=== PATIENT | female | born 1955 | race Caucasian/White ===

== ENCOUNTER 2016-04-19 16:49 | Outpatient (CLI) | payer MEDICAID | END 2016-04-19 16:50 | disposition home or self-care (01) | DX: R93.8 Abnormal findings on diagnostic imaging of other specified body structures (principal) ==

== ENCOUNTER 2016-05-29 15:01 | Outpatient (CLI) | payer MEDICAID | END 2016-05-29 15:02 | disposition home or self-care (01) | DX: Z01.812 Encounter for preprocedural laboratory examination (principal); N95.0 Postmenopausal bleeding ==

== ENCOUNTER 2016-05-31 08:04 | Day surgery (SDC) | payer MEDICAID ==
[~2016-05-31 08:04] MED LIST: ceFAZolin 2 GM/50 ML 50 ML IV ONE
[2016-05-31] MEDS ORDERED: LACTATED RINGERS 1,000 ML IV ONE (08:16)
[2016-05-31] MEDS ORDERED: BUPIVACAINE 0.25%-EPI 1:200000 PF 30 ML VIAL SUBQ ONE ×2 (09:49)
[2016-05-31] MEDS ORDERED: MIDAZOLAM 2 MG/2 ML VIAL IVP ONE (10:00)
[2016-05-31] MEDS ORDERED: LIDOCAINE 1% 50 ML MDV SUBQ ONE (10:00)
[2016-05-31] MEDS ORDERED: GLYCOPYRROLATE 1 MG/5 ML VIAL IVP ONE (10:00)
[2016-05-31] MEDS ORDERED: fentaNYL 100 MCG/2 ML VIAL IVP ONE (10:00)
[2016-05-31] MEDS ORDERED: DEXAMETHASONE 4 MG/ML VIAL IVP ONE (10:00)
[2016-05-31] MEDS ORDERED: ONDANSETRON 4 MG/2 ML VIAL IVP ONE (10:00)
[2016-05-31] MEDS ORDERED: PROPOFOL 200 MG/20 ML VIAL IVP ONE (10:00)
== END 2016-05-31 08:05 | disposition home or self-care (01) ==
PROC: 0UDB8ZZ Extraction of Endometrium, Via Natural or Artificial Opening Endoscopic (ICD-10-PCS; principal; 2016-05-31 09:00)
DX: N95.0 Postmenopausal bleeding (principal); F32.9 Major depressive disorder, single episode, unspecified
CPT/HCPCS: 58558; 93005; J0690; J7120

== ENCOUNTER 2017-08-29 08:00 | Outpatient (CLI) | payer MEDICAID | END 2017-08-29 08:01 | disposition home or self-care (01) | LOC: LAB.R 08:00 | PROVIDERS: ATTEND Physician Assistant Medical | DX: F90.0 Attention-deficit hyperactivity disorder, predominantly inattentive type (principal) | CPT/HCPCS: 81599 ==

== ENCOUNTER 2017-08-29 08:00 | Outpatient (CLI) | payer MEDICAID ==
[2017-08-30 10:46] LABS: ALBUMIN 3.9 g/dL (3.2-5.5); ALBUMIN/GLOBULIN RATIO 1.5 (1.0-2.2); BILIRUBIN,TOTAL 0.7 mg/dL (0.2-1.0); CALCIUM 9.2 mg/dL (8.5-10.3); CREATININE 0.6 mg/dL (0.4-1.0); TOTAL PROTEIN 6.5 g/dL (6.7-8.2)
[2017-08-30 10:48] LABS: BASOPHILS % (AUTO) 0.6 %; EOSINOPHILS # (AUTO) 0.1 10^3/uL (0.0-0.7); EOSINOPHILS % (AUTO) 1.8 %; HGB - HEMOGLOBIN 13.1 g/dL (12.0-16.0); LYMPHOCYTES # (AUTO) 1.6 10^3/uL (1.5-3.5); LYMPHOCYTES % (AUTO) 36.2 %; MEAN CORPUSCULAR HEMOGLOBIN 32.9 pg (27.0-31.0); MEAN CORPUSCULAR HGB CONC 34.1 g/dL (32.0-36.0); MEAN CORPUSCULAR VOLUME 96.5 fL (81.0-99.0); MEAN PLATELET VOLUME 8.7 fL (7.9-10.8); MONOCYTES # (AUTO) 0.3 10^3/uL (0.0-1.0); NEUTROPHILS # (AUTO) 2.5 10^3/uL (1.5-6.6); NEUTROPHILS % (AUTO) 55.4 %; PLT - PLATELET COUNT 216 10^3/uL (130-450); RED BLOOD COUNT 3.99 10^6/uL (4.20-5.40); RED CELL DISTRIBUTION WIDTH 13.6 % (12.0-15.0); WHITE BLOOD COUNT 4.5 x10^3/uL (4.8-10.8)
== END 2017-08-29 08:01 | disposition home or self-care (01) ==
LOC: LAB.F 08:00
PROVIDERS: ATTEND Physician Assistant Medical
DX: Z51.81 Encounter for therapeutic drug level monitoring (principal); Z79.899 Other long term (current) drug therapy
CPT/HCPCS: 36415; 80053; 80360; 81599; 85025

== ENCOUNTER 2018-03-26 08:12 | Outpatient (CLI) | payer MEDICAID ==
--- NOTE | 2018-04-02 16:12 | DEXA Report ---
Reason: POSTEMNOPAUSAL STATUS Procedure Date: 03/26/2018 Accession Number: [id number] / [id number] Procedure: DEX - Dexa Spine and/or Hip CPT Code: FULL RESULT: EXAM: Dexa Spine and/or Hip DATE: 03/26/2018 9:03 AM CLINICAL HISTORY: POST-MENOPAUSAL STATUS TECHNIQUE: Dual energy x-ray absorptiometry (DXA) was performed on a Jammcard System. Regions measured are the AP Spine, femoral neck, and if needed forearm. COMPARISON: 01/24/2016 In accordance with the International Society for Clinical Densitometry (ISCD) guidelines, data from previous exams may be reanalyzed using current recommendations and techniques. This is done to allow a more accurate basis for comparison with the current study. FINDINGS: The data for the lumbar spine is as follows: BMD (g/cm/cm) T-SCORE Z-SCORE REGION L1 0.851 -2.3 -0.5 L2 0.897 -2.5 -0.7 L3 0.926 -2.3 -0.5 L4 0.848 -2.9 -1.1 TOTAL 0.880 -2.5 -0.7 NOTE: All evaluable vertebrae are used for classification The data for the hip is as follows: BMD (g/cm/cm) T-SCORE Z-SCORE REGION Neck 0.666 -2.7 -1.1 TOTAL 0.652 -2.8 -1.5 NOTE: The femoral neck or total proximal femur, whichever is lowest, is used for classification.. DXA RESULTS SUMMARY: Spine SCAN DATE AGE BMD CHANGE VS CHANGE VS PREVIOUS PREVIOUS % [birth year]26[birth year]2018 [age] 0.880 -0.075* -7.9* 01/24/2016 62.7 0.955 * Denotes significant change at the 95% confidence level. Denotes dissimilar scan types or analysis methods. DXA RESULTS SUMMARY: Hip SCAN DATE AGE BMD CHANGE VS CHANGE VS PREVIOUS PREVIOUS % [birth year]26/2018 64.9 0.652 -0.022 -3.3 01/24/2016 62.7 0.674 * Denotes significant change at the 95% confidence level. Denotes dissimilar scan types or analysis methods. IMPRESSION: THE WHO CLASSIFICATION BASED ON THE INTERNATIONAL REFERENCE STANDARD IS OSTEOPOROSIS. THE FRACTURE RISK IS HIGH. RECOMMENDATION: Patients with diagnosis of osteoporosis or osteopenia should have regular bone mineral density assessment. For those eligible for Medicare, routine testing is allowed once every 2 years. Testing frequency can be increased for patients who have rapidly progressing disease or for those who are receiving medical therapy to restore bone mass. COMMENT: World Health Organization (WHO) definitions for osteoporosis and osteopenia: NORMAL BMD: T-score at -1.0 or higher, fracture risk is low OSTEOPENIA BMD: T-score between -1.0 and -2.5, fracture risk is increased. OSTEOPOROSIS BMD: T-score at -2.5 or lower, fracture risk is high. National Osteoporosis Foundation recommends: 1. Obtain adequate dietary calcium (at least 1200 mg per day) and vitamin D (400-800 international units per day). 2. Participate, as appropriate, in regular weightbearing and muscle-strengthening exercise. 3. Avoid tobacco use and reduce alcohol and caffeine intake. 4. For more detailed information see the website at www.NOF.org.
== END 2018-03-26 08:13 | disposition home or self-care (01) ==
LOC: DI 08:12
PROVIDERS: ATTEND Physician Assistant Medical
DX: M81.0 Age-related osteoporosis without current pathological fracture (principal)
CPT/HCPCS: 77080

== ENCOUNTER 2018-05-09 09:30 | Outpatient (CLI) | payer MEDICAID, MEDICARE ==
--- NOTE | 2018-05-10 09:21 | Mammography Report ---
Reason: SCREENING MAMMO Procedure Date: 05/09/2018 Accession Number: [id number] / [id number] Procedure: [facility]CO[facility] - Screening Mammo w/Paolo CPT Code: FULL RESULT: EXAM: Screening Mammo w/Paolo DATE: 05/09/2018 10:03 AM CLINICAL HISTORY: Screening encounter. History of late childbearing. TECHNIQUE: Bilateral CC and MLO views were obtained. COMPARISON: 01/24/2016 through 10/03/2013. FINDINGS: The breasts demonstrate heterogeneously dense fibroglandular parenchyma bilaterally. No suspicious masses, clustered microcalcifications, or regions of architectural distortion are identified. IMPRESSION: Negative examination RECOMMENDATION: Routine annual screening unless otherwise clinically indicated. BIRADS CATEGORY 1: Negative STANDARD QUALIFYING STATEMENTS: 1. This examination was not reviewed with the aid of Computer-Aided Detection (CAD). 2. A negative or benign imaging report should not preclude biopsy if clinically suspicious findings are present. 3. Dense breasts may obscure an underlying neoplasm. 4. This examination was reviewed with the aid of 3D breast imaging (tomosynthesis).
== END 2018-05-09 09:31 | disposition home or self-care (01) ==
LOC: DI 09:30
DX: Z12.31 Encounter for screening mammogram for malignant neoplasm of breast (principal)
CPT/HCPCS: 77063; 77067

== ENCOUNTER 2018-07-18 09:19 | Day surgery (SDC) | payer MEDICARE ==
[2018-07-18] MEDS ORDERED: LACTATED RINGERS 1,000 ML IV ONE (09:54)
[2018-07-18] MEDS ORDERED: fentaNYL 250 MCG/5 ML VIAL IVP ONE (11:29)
[2018-07-18] MEDS ORDERED: MIDAZOLAM 2 MG/2 ML VIAL IVP ONE (11:29)
[2018-07-18 11:57] VITALS: BP 102/75
== END 2018-07-18 09:20 | disposition home or self-care (01) ==
LOC: SDS 09:19
PROVIDERS: ATTEND Internal Medicine Gastroenterology
PROC: 0DBF8ZZ Excision of Right Large Intestine, Via Natural or Artificial Opening Endoscopic (ICD-10-PCS; principal; 2018-07-18 10:45)
DX: Z12.11 Encounter for screening for malignant neoplasm of colon (principal); D12.1 Benign neoplasm of appendix; Z87.891 Personal history of nicotine dependence
CPT/HCPCS: 45380; J3010; J7120

== ENCOUNTER 2019-02-14 09:06 | Outpatient (CLI) | payer MEDICARE ==
[2019-02-14 18:56] LABS: BASOPHILS % (AUTO) 0.5 %; EOSINOPHILS # (AUTO) 0.1 10^3/uL (0.0-0.7); HGB - HEMOGLOBIN 13.3 g/dL (12.0-16.0); LYMPHOCYTES # (AUTO) 1.5 10^3/uL (1.5-3.5); LYMPHOCYTES % (AUTO) 24.7 %; MEAN CORPUSCULAR HEMOGLOBIN 32.6 pg (27.0-31.0); MEAN CORPUSCULAR HGB CONC 32.4 g/dL (32.0-36.0); MEAN CORPUSCULAR VOLUME 100.7 fL (81.0-99.0); MONOCYTES # (AUTO) 0.4 10^3/uL (0.0-1.0); MONOCYTES % (AUTO) 6.3 %; NEUTROPHILS # (AUTO) 3.9 10^3/uL (1.5-6.6); NEUTROPHILS % (AUTO) 66.2 %; PLT - PLATELET COUNT 308 10^3/uL (130-450); RED BLOOD COUNT 4.08 10^6/uL (4.20-5.40); RED CELL DISTRIBUTION WIDTH 12.7 % (12.0-15.0); WHITE BLOOD COUNT 5.9 x10^3/uL (4.8-10.8)
[2019-02-14 19:38] LABS: ALBUMIN 3.9 g/dL (3.2-5.5); ALBUMIN/GLOBULIN RATIO 1.3 (1.0-2.2); BILIRUBIN,TOTAL 0.6 mg/dL (0.2-1.0); CALCIUM 8.8 mg/dL (8.5-10.3); CREATININE 0.7 mg/dL (0.4-1.0); TOTAL PROTEIN 6.8 g/dL (6.7-8.2)
== END 2019-02-14 09:07 | disposition home or self-care (01) ==
LOC: LAB.S 09:06
PROVIDERS: ATTEND Physician Assistant Medical
DX: Z51.81 Encounter for therapeutic drug level monitoring (principal); Z79.899 Other long term (current) drug therapy; E55.9 Vitamin D deficiency, unspecified; M81.0 Age-related osteoporosis without current pathological fracture
CPT/HCPCS: 36415; 80053; 82306; 85025

== ENCOUNTER 2019-05-15 15:04 | Outpatient (CLI) | payer MEDICARE ==
[2019-05-15 15:38] LABS: MEAN CORPUSCULAR HGB CONC 32.5 g/dL (32.0-36.0); MEAN CORPUSCULAR VOLUME 98.4 fL (81.0-99.0); MEAN PLATELET VOLUME 10.1 fL (7.9-10.8); RED BLOOD COUNT 3.75 10^6/uL (4.20-5.40); RED CELL DISTRIBUTION WIDTH 12.9 % (12.0-15.0); WHITE BLOOD COUNT 7.7 x10^3/uL (4.8-10.8)
[2019-05-15 15:52] LABS: ALBUMIN 3.5 g/dL (3.2-5.5); ALBUMIN/GLOBULIN RATIO 1.1 (1.0-2.2); BILIRUBIN,TOTAL 0.4 mg/dL (0.2-1.0); CALCIUM 8.8 mg/dL (8.5-10.3); CREATININE 0.6 mg/dL (0.4-1.0); TOTAL PROTEIN 6.6 g/dL (6.7-8.2)
== END 2019-05-15 15:05 | disposition home or self-care (01) ==
LOC: LAB 15:04
PROVIDERS: ATTEND Obstetrics & Gynecology
DX: R09.89 Other specified symptoms and signs involving the circulatory and respiratory systems (principal); M54.6 Pain in thoracic spine; R19.00 Intra-abdominal and pelvic swelling, mass and lump, unspecified site
CPT/HCPCS: 36415; 80053; 81599; 85027; 86304

== ENCOUNTER 2019-05-15 16:26 | Outpatient (CLI) | payer MEDICARE ==
[2019-05-15] MEDS ORDERED: IOVERSOL 320 100 ML VIAL IVP ONE ×2 (16:37→16:57)
--- NOTE | 2019-05-15 17:46 | CT Report ---
Reason: Abdominal Bruit, Distention, Pelvic Mass Procedure Date: 05/15/2019 Accession Number: [id number] / [id number] Procedure: CT - ANGIO ABDOMEN/PELVIS W CPT Code: Addended Final Report FULL RESULT: EXAM: CT ANGIOGRAM ABDOMEN AND PELVIS WITH CONTRAST EXAM DATE: 05/15/2019 04:55 PM. CLINICAL HISTORY: Abdominal Bruit, Distention, Pelvic Mass. COMPARISONS: None. TECHNIQUE: Routine helical CT angiogram imaging was performed through the abdomen and pelvis in the arterial phase. IV contrast: OPTI 320 100ML. Enteric contrast: No. Reconstructions: Coronal, sagittal, and 3D MIP reconstructions. In accordance with CT protocol optimization, one or more of the following dose reduction techniques were utilized for this exam: automated exposure control, adjustment of mA and/or KV based on patient size, or use of iterative reconstructive technique. FINDINGS: Vasculature: The abdominal aorta and iliac arteries are normal in caliber. Negligible calcified plaque. The renal arteries and mesenteric arteries are patent without evidence of significant stenosis or mural thrombus. Lung Bases: Normal. Abdominal Solid Organs: Assessment of solid organs limited by early arterial phase technique. No hypervascular early enhancing solid organ lesion. No focal mass or organomegaly. Peritoneal Cavity: There is a moderate volume of intraperitoneal free fluid within all 4 quadrants of the abdomen. There is nodularity of omentum in the left upper quadrant of the abdomen with peritoneal thickening. There is an omental nodule in the left upper quadrant located between the posterior spleen and left kidney measuring 12 mm on series 2 image 53. There are other ill-defined nodules in the left upper quadrant anterior and inferior to the spleen which appears separate from bowel. Concerning for omental carcinomatosis. No free air. Pelvic Organs: Normal ovaries are not visualized, although evaluation is limited by early arterial phase technique. There are bilateral adnexal masses which demonstrate a heterogeneous arterial enhancement. There is a right adnexal mass measuring 75 x 67 x 75 mm. There is a left adnexal mass measuring 100 x 70 85 mm. Uterus appears anteverted. Bones: No significant abnormality. Other: None. IMPRESSION: 1. Normal appearance of aorta, iliac arteries and mesenteric arteries. 2. Moderate volume of free fluid in all 4 quadrants of abdomen. Multiple omental nodules in the left upper quadrant suspicious for peritoneal carcinomatosis. 3. Bilateral large adnexal masses. No normal ovaries visualized. Possible large omental implants versus bilateral or unilateral ovarian neoplasm. Characterization limited by technique. RADIA The call report notification system was initiated by Dr. Topher Harris at 05:46 PM on 05/15/2019. ADDENDUM: 05/15/19 18:36 The above call report findings were discussed with Jorge L by Dr. Young at 06:36 PM on 05/15/2019.
--- NOTE | 2019-05-15 18:35 | CT Report ---
Reason: Chest Pain, Back Pain Procedure Date: 05/15/2019 Accession Number: [id number] / [id number] Procedure: CT - ANGIO CHEST W/WO CPT Code: Final Report FULL RESULT: EXAM: CT ANGIOGRAM CHEST EXAM DATE: 05/15/2019 04:55 PM. CLINICAL HISTORY: Chest Pain, Back Pain. COMPARISON: None TECHNIQUE: Routine helical imaging was performed through the chest in the pulmonary arterial phase. IV Contrast: OPTI 320 100ML. Reconstructions: Coronal 3-D MIP reconstructions. Sagittal and coronal. In accordance with CT protocol optimization, one or more of the following dose reduction techniques were utilized for this exam: automated exposure control, adjustment of mA and/or KV based on patient size, or use of iterative reconstructive technique. FINDINGS: Vascular: Thoracic aorta is normal caliber. No intramural hematoma, dissection, or high grade stenosis. Visualized portions of the major arch branches are patent without high grade stenosis. Acute segmental and subsegmental small amount of nonocclusive pulmonary emboli in the right upper lobe, right lower lobe, and left lower lobe. No imaging evidence for right heart strain. Lungs/Pleura: A couple of 4 mm nodules in the posterior left upper lobe () are noted. No pleural effusions. Mediastinum: No mediastinal or hilar lymphadenopathy. Heart size is within normal limits. No pericardial effusion. Visualized thyroid is unremarkable. Moderate sliding hiatal hernia. Increased numbers of subcentimeter axillary lymph nodes measuring up to 8 mm on the right, with a fatty hilum. Bones: No suspicious osseous lesions. IMPRESSION: Small amount of acute pulmonary borderline in the right upper lobe, right lower lobe, and left lower lobe. No imaging evidence for right heart strain. RADIA The critical result notification system was initiated by Dr. Faisal Young at 05:43 PM on 05/15/2019. The above critical result findings were discussed with Cristal Coats by Dr. Faisal Young at 06:35 PM on 05/15/2019.
== END 2019-05-15 16:27 | disposition home or self-care (01) ==
LOC: DI 16:26
PROVIDERS: ATTEND Obstetrics & Gynecology
DX: I26.99 Other pulmonary embolism without acute cor pulmonale (principal); R19.02 Left upper quadrant abdominal swelling, mass and lump; N94.9 Unspecified condition associated with female genital organs and menstrual cycle
CPT/HCPCS: 71275; 74174

== ENCOUNTER 2020-01-02 12:14 | Emergency (ER) | payer MEDICARE ==
--- NOTE | 2020-01-02 13:22 | ED Physician Documentation ---
History of Present Illness - Stated complaint Stated Complaint: LEG PAIN, PURPLE LEFT LEG - Chief complaint Chief Complaint: General - History obtained from History obtained from: Patient - History of Present Illness Timing: How many days ago (3) Pain level max: 0 Pain level now: 0 - Additonal information Additional information: 64-year-old female with a history of stage IV ovarian cancer and pulmonary embolism, presents the emergency department with red dots and bruising to both of her legs for the last 3 days. She is currently on Eliquis and recently started Zejula. Does have intermittent epistaxis for several months, none currently. She denies bleeding when brushing her teeth. No rectal or vaginal bleeding. No trauma. No headache. Review of Systems Constitutional: denies: Fever, Chills Nose: reports: Epistaxis (intermittent for months, none now). 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: Other : Other HEENT: None Psych: Depression, Anxiety, ADD/ADHD Musculoskeletal: Osteoporosis Derm: None - Past Surgical History Past Surgical History: Yes General: Colonoscopy /AUTOMOTIVE PARTS COUNTERPERSON: section, Dilation and currettage HEENT: Cataracts, Tonsil/Adenoidectomy - Present Medications Home Medications: Ambulatory Orders Medication Instructions Recorded Confirmed Citalopram Hydrobromide 20 mg PO DAILY 05/16/19 12/15/19 [Citalopram HBr] Methylphenidate HCl 20 mg PO BID 05/16/19 12/15/19 [Methylphenidate ER] Cyclosporine [Restasis] 1 drops EACHEYE DAILY PRN 06/23/19 12/15/19 LORazepam [Ativan] 0.5 mg PO Q6H PRN 06/24/19 12/15/19 Lidocaine/Prilocain 2.5% Cream 30 gm TOP DAILY 06/24/19 12/15/19 [Emla 2.5% Cream] Oxycodone HCl/Acetaminophen 1 each PO Q12H PRN 06/24/19 12/15/19 [Percocet 10-325 mg Tablet] Prochlorperazine Maleate 10 mg PO DAILY PRN 06/24/19 12/15/19 [Compazine] Rivaroxaban [Xarelto] 20 mg PO DAILY 06/24/19 12/15/19 Niraparib Tosylate [Zejula] 300 mg PO DAILY 11/17/19 12/15/19 - Allergies Allergies/Adverse Reactions: Allergies Allergy/AdvReac Type Severity Reaction Status Date / Time No Known Drug Allergies Allergy Verified 01/02/20 12:32 - Social History Does the pt smoke?: No Smoking Status: Never smoker Does the pt drink ETOH?: Yes Does the pt have substance abuse?: No - POLST Patient has POLST: No POLST Status: Full Code PD ED PE NORMAL - Vitals Vital signs reviewed: Yes - General General: Alert and oriented X 3, No acute distress, Well developed/nourished - HEENT HEENT: Moist mucous membranes - Neck Neck: Supple, no meningeal sign - Cardiac Cardiac: RRR - Respiratory Respiratory: No respiratory distress, Clear bilaterally - Abdomen Abdomen: Soft, Non tender, Non distended - Derm Derm: Warm and dry - Extremities Extremities: Other (Petechiae and ecchymosis to the bilateral lower extremities.) - Neuro Neuro: Alert and oriented X 3 - Psych Psych: Normal mood, Normal affect Results - Vitals Vitals: Vital Signs - 24 hr 01/02/20 01/02/20 01/02/20 12:22 14:32 16:07 Temperature 37.1 C 37.3 C Heart Rate 96 89 85 Respiratory 18 18 16 Rate Blood Pressure 145/93 H 145/53 H 127/92 H O2 Saturation 98 100 100 Oxygen O2 Source Room air - Labs Labs: Laboratory Tests 01/02/20 01/02/20 01/02/20 13:33 13:33 13:33 WBC 2.5 L RBC 2.37 L Hgb 8.2 L Hct 23.4 L MCV 98.7 MCH 34.6 H MCHC 35.0 RDW 13.4 Plt Count 2 L* Neut # (Auto) 1.3 L Lymph # (Auto) 1.1 L [place] # (Auto) 0.1 Eos # (Auto) 0.1 Baso # (Auto) 0.0 Absolute Nucleated RBC 0.00 Nucleated RBC % 0.0 Manual Slide Review Indicated WBC Morphology NORMAL APPEARANCE Platelet Estimate DECREASED (<130,000) Platelet Morphology NORMAL APPEARANCE RBC Morph Micro Appear NORMAL APPEARANCE PT 14.2 H INR 1.3 H APTT 31.8 Sodium 137 Potassium 4.1 Chloride 98 L Carbon Dioxide 28 Anion Gap 11.0 BUN 35 H Creatinine 1.1 H Estimated GFR (MDRD) 50 L Glucose 120 H Calcium 9.8 Total Bilirubin 1.0 AST 36 ALT 28 Alkaline Phosphatase 65 Total Protein 6.7 Albumin 3.8 Globulin 2.9 Albumin/Globulin Ratio 1.3 Lipase 38 PD MEDICAL DECISION MAKING - ED course Complexity details: reviewed results, re-evaluated patient, considered differential, d/w patient, d/w family ED course: Patient with thrombocytopenia secondary to Zejula. She is also on Xarelto. Her platelets are found to be 2. No active bleeding in the emergency department. Discussed the case with Dr. Jacobs, oncology who recommends platelet transfusion. Discussed the case with Dr. Martin, hospitalist who does not feel comfortable with the patient here as we do not have platelets and or any neurosurgical interventions. Discussed the case with [facility], Dr. Graves who will look for a bed for the patient. Patient will be transferred to [place] in [place]. COBRA forms completed. Dr. Styles accepts in transfer to [place]. This document was made in part using voice recognition software. While efforts are made to proofread this document, sound alike and grammatical errors may occur. Departure - Departure Disposition: 02 Transfer Acute Care Hosp Clinical Impression: Petechiae, Thrombocytopenia, Anticoagulant effect Ovarian cancer Qualifiers: Laterality: unspecified laterality Qualified Code(s): C56.9 - Malignant neoplasm of unspecified ovary Condition: Stable
[2020-01-02 13:48] LABS: EOSINOPHILS # (AUTO) 0.1 10^3/uL (0.0-0.7); HGB - HEMOGLOBIN 8.2 g/dL (12.0-16.0); LYMPHOCYTES # (AUTO) 1.1 10^3/uL (1.5-3.5); LYMPHOCYTES % (AUTO) 43.3 %; MEAN CORPUSCULAR HEMOGLOBIN 34.6 pg (27.0-31.0); MEAN CORPUSCULAR VOLUME 98.7 fL (81.0-99.0); MONOCYTES # (AUTO) 0.1 10^3/uL (0.0-1.0); MONOCYTES % (AUTO) 2.4 %; NEUTROPHILS # (AUTO) 1.3 10^3/uL (1.5-6.6); NEUTROPHILS % (AUTO) 52.3 %; RED BLOOD COUNT 2.37 10^6/uL (4.20-5.40); RED CELL DISTRIBUTION WIDTH 13.4 % (12.0-15.0); WHITE BLOOD COUNT 2.5 x10^3/uL (4.8-10.8)
[2020-01-02 13:52] LABS: PLT - PLATELET COUNT 2 10^3/uL (130-450)
[2020-01-02 13:58] LABS: ALBUMIN 3.8 g/dL (3.2-5.5); ALBUMIN/GLOBULIN RATIO 1.3 (1.0-2.2); CALCIUM 9.8 mg/dL (8.5-10.3); CREATININE 1.1 mg/dL (0.4-1.0); TOTAL PROTEIN 6.7 g/dL (6.7-8.2)
[2020-01-02 14:04] LABS: INR 1.3 (0.8-1.2); PT - PROTHROMBIN TIME 14.2 secs (9.9-12.6)
[2020-01-02 14:12] LABS: PARTIAL THROMBOPLASTIN TIME 31.8 secs (24.9-33.3)
[2020-01-02 14:33] LABS: PLATELET ESTIMATE, MANUAL DECREASED (<130,000) (NORMAL); PLATELET MORPHOLOGY NORMAL APPEARANCE (NORMAL); RBC MORPHOLOGY (MULTIPLE) NORMAL APPEARANCE (NORMAL)
[2020-01-02] MEDS ORDERED: SODIUM CHLORIDE 0.9% 1,000 ML IV STA (18:30)
[2020-01-02 20:21] VITALS: BP 115/89
== END 2020-01-02 20:17 | disposition short-term general hospital (02) ==
LOC: ED 12:14
DX: D69.59 Other secondary thrombocytopenia (principal); T45.1X5A Adverse effect of antineoplastic and immunosuppressive drugs, initial encounter; C56.9 Malignant neoplasm of unspecified ovary; Z86.711 Personal history of pulmonary embolism; Z79.01 Long term (current) use of anticoagulants
CPT/HCPCS: 36415; 80053; 83690; 85025; 85610; 85730; 99284; 99285

== ENCOUNTER 2020-01-10 14:40 | Emergency (ER) | payer MEDICARE ==
[2020-01-10] MEDS ORDERED: SODIUM CHLORIDE 0.9% 1,000 ML IV STA ×3 (15:46→18:38)
--- NOTE | 2020-01-10 15:46 | ED Physician Documentation ---
History of Present Illness - Stated complaint Stated Complaint: THROAT PX,BLOODY NOSE, HIGH TEMP - Chief complaint Chief Complaint: Fever - History obtained from History obtained from: Patient, Family - History of Present Illness Pain level max: 6 Pain level now: 5 - Additonal information Additional information: 64-year-old female with a history of metastatic ovarian cancer presents to the emergency department complaining of a sore throat for the past 2 to 3 days. Has had intermittent fevers. T-max 101. She was recently started on Magic mouthwash for presumed stomatitis. She is also had some right upper quadrant abdominal pain, does have liver metastases. They have cut back her Tylenol as her liver function tests have been increased recently. She was recently seen here and transferred to [facility] in [place] for thrombocytopenia while on Eliquis and a new oral chemotherapy medication which is now been stopped. No cough. No chest pain. Some nausea but no vomiting. Patient does have intermittent headaches. Had a nosebleed this morning, lasted about 5 minutes. Review of Systems Constitutional: reports: Fever Nose: reports: Epistaxis. denies: Rhinorrhea / runny nose, Congestion Throat: reports: Sore throat Cardiac: denies: Chest pain / pressure Respiratory: denies: Cough GI: denies: Nausea, Vomiting, Diarrhea : denies: Dysuria, Frequency, Hesitancy Skin: denies: Rash Musculoskeletal: denies: Neck pain, Back pain PD PAST MEDICAL HISTORY - Past Medical History Past Medical History: Yes Cardiovascular: None Respiratory: None Endocrine/Autoimmune: None GI: GERD, Colon polyps, Chronic diarrhea BOTTOM MAN: Ovarian cancer, Other : Other HEENT: None Psych: Depression, Anxiety, ADD/ADHD Musculoskeletal: Osteoporosis Derm: None - Past Surgical History Past Surgical History: Yes General: Colonoscopy /BOTTOM MAN: section, Dilation and currettage, Hysterectomy HEENT: Cataracts, Tonsil/Adenoidectomy - Present Medications Home Medications: Ambulatory Orders Medication Instructions Recorded Confirmed Citalopram Hydrobromide 20 mg PO DAILY 05/16/19 01/05/20 [Citalopram HBr] Methylphenidate HCl 20 mg PO BID 05/16/19 01/05/20 [Methylphenidate ER] Cyclosporine [Restasis] 1 drops EACHEYE DAILY PRN 06/23/19 01/05/20 LORazepam [Ativan] 0.5 mg PO Q6H PRN 06/24/19 01/05/20 Lidocaine/Prilocain 2.5% Cream 30 gm TOP DAILY 06/24/19 01/05/20 [Emla 2.5% Cream] Prochlorperazine Maleate 10 mg PO DAILY PRN 06/24/19 01/05/20 [Compazine] Rivaroxaban [Xarelto] 10 mg PO DAILY 06/24/19 01/05/20 Ondansetron HCl [Zofran] 8 mg PO BID PRN #30 tablet 01/07/20 oxyCODONE [Roxicodone] 5 mg PO UD PRN #45 tablet 01/07/20 - Allergies Allergies/Adverse Reactions: Allergies Allergy/AdvReac Type Severity Reaction Status Date / Time No Known Drug Allergies Allergy Verified 01/10/20 14:57 - Social History Does the pt smoke?: No Smoking Status: Former smoker Does the pt drink ETOH?: No Does the pt have substance abuse?: No - Immunizations Immunizations are current?: Yes - POLST Patient has POLST: No POLST Status: Full Code PD ED PE NORMAL - Vitals Vital signs reviewed: Yes - General General: Alert and oriented X 3, No acute distress - HEENT HEENT: Moist mucous membranes, Other (Mild stomatitis. Normal appearing tonsils. No exudate. Normal phonation. No trismus.) - Neck Neck: Supple, no meningeal sign, Other (Shotty anterior lymphadenopathy) - Cardiac Cardiac: RRR, Strong equal pulses - Respiratory Respiratory: No respiratory distress, Clear bilaterally - Abdomen Abdomen: Soft, Other (Right upper quadrant. No peritoneal signs) - Back Back: No CVA TTP, No spinal TTP - Derm Derm: Warm and dry - Extremities Extremities: No edema - Neuro Neuro: Alert and oriented X 3, back order clerk 2-12 intact, No motor deficit, No sensory deficit, Normal speech Eye Opening: Spontaneous Motor: Obeys Commands Verbal: Oriented GCS Score: 15 - Psych Psych: Normal mood, Normal affect Results - Vitals Vitals: Vital Signs - 24 hr 01/10/20 01/10/20 01/10/20 14:45 15:22 16:06 Temperature 37.1 C 38 C H 37.7 C H Heart Rate 106 H 104 H 98 Respiratory 16 22 19 Rate Blood Pressure 130/80 127/86 H 127/78 O2 Saturation 98 98 98 01/10/20 01/10/20 01/10/20 16:53 17:05 18:00 Temperature 38.5 C H 38.1 C H Heart Rate 90 99 94 Respiratory 16 22 20 Rate Blood Pressure 118/78 127/81 H 125/78 O2 Saturation 100 100 98 01/10/20 01/10/20 01/10/20 18:22 18:30 19:15 Temperature 39.0 C H 38.1 C H Heart Rate 115 H 112 H 108 H Respiratory 18 18 25 H Rate Blood Pressure 125/78 152/97 H 119/70 O2 Saturation 100 98 94 01/10/20 20:28 Temperature 36.9 C Heart Rate 97 Respiratory 24 Rate Blood Pressure 133/73 H O2 Saturation 99 Oxygen O2 Source Room air - Labs Labs: Laboratory Tests 01/10/20 01/10/20 01/10/20 15:50 15:50 15:50 WBC 0.3 L* RBC 2.28 L Hgb 7.5 L Hct 22.2 L MCV 97.4 MCH 32.9 H MCHC 33.8 RDW 12.4 Plt Count 5 L* MPV 9.5 Neut # (Auto) 0.0 L* Lymph # (Auto) 0.3 L [place] # (Auto) 0.0 Eos # (Auto) 0.0 Baso # (Auto) 0.0 Absolute Nucleated RBC 0.00 Total Counted WARP TYING MACHINE TENDER Band Neuts % (Manual) Not Reportable Abnorm Lymph % (Manual) Not Reportable Nucleated RBC % 0.0 Neutrophils # (Manual) Not Reportable Lymphocytes # (Manual) Not Reportable Monocytes # (Manual) Not Reportable Eosinophils # (Manual) Not Reportable Basophils # (Manual) Not Reportable Differential Comment MANUAL=AUTO DIFF Manual Slide Review Indicated Platelet Estimate DECREASED (<130,000) Platelet Morphology NORMAL APPEARANCE RBC Morph Micro Appear 2+ HYPOCHROMASIA PT 25.3 H INR 2.4 H APTT 43.8 H Sodium 134 L Potassium 4.2 Chloride 93 L Carbon Dioxide 29 Anion Gap 12.0 BUN 23 H Creatinine 0.8 Estimated GFR (MDRD) 72 L Glucose 125 H Lactic Acid Calcium 9.6 Total Bilirubin 1.0 AST 167 H ALT 148 H Alkaline Phosphatase 198 H Total Protein 7.2 Albumin 3.4 Globulin 3.8 Albumin/Globulin Ratio 0.9 L Lipase 19 L Urine Color Urine Clarity Urine pH Ur Specific [place] Urine Protein Urine Glucose (UA) Urine Ketones Urine Occult Blood Urine Nitrite Urine Bilirubin Urine Urobilinogen Ur Leukocyte Esterase Urine RBC Urine WBC Ur Epithelial Cells Ur Squamous Epith Cells Urine Bacteria Ur Microscopic Review Urine Culture Comments Group A Strep Rapid 01/10/20 01/10/20 01/10/20 15:50 16:00 16:05 WBC RBC Hgb Hct MCV MCH MCHC RDW Plt Count MPV Neut # (Auto) Lymph # (Auto) [place] # (Auto) Eos # (Auto) Baso # (Auto) Absolute Nucleated RBC Total Counted Band Neuts % (Manual) Abnorm Lymph % (Manual) Nucleated RBC % Neutrophils # (Manual) Lymphocytes # (Manual) Monocytes # (Manual) Eosinophils # (Manual) Basophils # (Manual) Differential Comment Manual Slide Review Platelet Estimate Platelet Morphology RBC Morph Micro Appear PT INR APTT Sodium Potassium Chloride Carbon Dioxide Anion Gap BUN Creatinine Estimated GFR (MDRD) Glucose Lactic Acid 0.7 Calcium Total Bilirubin AST ALT Alkaline Phosphatase Total Protein Albumin Globulin Albumin/Globulin Ratio Lipase Urine Color YELLOW Urine Clarity CLEAR Urine pH 6.0 Ur Specific [place] 1.015 Urine Protein 30 H Urine Glucose (UA) NEGATIVE Urine Ketones TRACE Urine Occult Blood MODERATE H Urine Nitrite NEGATIVE Urine Bilirubin NEGATIVE Urine Urobilinogen 4 H Ur Leukocyte Esterase NEGATIVE Urine RBC 6-10 H Urine WBC 0-3 Ur Epithelial Cells RARE Transitional Ur Squamous Epith Cells MANY Squamous H Urine Bacteria Rare Ur Microscopic Review INDICATED Urine Culture Comments NOT INDICATED Group A Strep Rapid Negative - Rads (name of study) cxr Radiology: Prelim report reviewed, EMP read contemporaneously, See rad report (No focal infiltrates are seen. ) RUQ US Radiology: Prelim report reviewed, EMP read contemporaneously, See rad report (Normal-appearing liver by ultrasound. The gallbladder demonstrates a normal sonographic appearance. No biliary dilatation is seen) PD MEDICAL DECISION MAKING - ED course Complexity details: reviewed old records, reviewed results, re-evaluated patient, considered differential, d/w patient, d/w family, d/w dairy feed sales consultant ED course: Patient will need transfer back to [facility] in [place] for pancytopenia, Including severe thrombocytopenia and neutropenia. Neutrophil count is 0. Neutropenic fever. Given cefepime. Blood cultures drawn. IV fluids given. Discussed the case with Dr. Merlos, oncology who agrees with transfer. Discussed the case with Dr. Naga Story at 1640, he will look for a bed. Patient accepted to [facility] in [place] by Dr. Browne at 1720. COBRA forms completed. Platelets are not available here. This document was made in part using voice recognition software. While efforts are made to proofread this document, sound alike and grammatical errors may occur. Departure - Departure Disposition: 02 Transfer Acute Care Hosp Clinical Impression: Pancytopenia, Thrombocytopenia, Neutropenic fever Fever Qualifiers: Fever type: unspecified Qualified Code(s): R50.9 - Fever, unspecified Condition: Stable Discharge Date/Time: 01/10/20 20:45
[2020-01-10 15:58] LABS: HGB - HEMOGLOBIN 7.5 g/dL (12.0-16.0); LYMPHOCYTES # (AUTO) 0.3 10^3/uL (1.5-3.5); MEAN CORPUSCULAR HEMOGLOBIN 32.9 pg (27.0-31.0); MEAN CORPUSCULAR HGB CONC 33.8 g/dL (32.0-36.0); MEAN CORPUSCULAR VOLUME 97.4 fL (81.0-99.0); MEAN PLATELET VOLUME 9.5 fL (7.9-10.8); RED BLOOD COUNT 2.28 10^6/uL (4.20-5.40); RED CELL DISTRIBUTION WIDTH 12.4 % (12.0-15.0)
[2020-01-10 16:05] LABS: INR 2.4 (0.8-1.2); PT - PROTHROMBIN TIME 25.3 secs (9.9-12.6)
[2020-01-10 16:08] LABS: ALBUMIN 3.4 g/dL (3.2-5.5); ALBUMIN/GLOBULIN RATIO 0.9 (1.0-2.2); CALCIUM 9.6 mg/dL (8.5-10.3); CREATININE 0.8 mg/dL (0.4-1.0); TOTAL PROTEIN 7.2 g/dL (6.7-8.2)
--- NOTE | 2020-01-10 16:08 | XRAY Report ---
PROCEDURE: Chest 1 View X-Ray INDICATIONS: fever, chemo pt TECHNIQUE: One view of the chest was acquired. COMPARISON: Prior chest CT 05/15/2019 FINDINGS: Surgical changes and devices: There is a right-sided chest port, with the tip overlying the inferior aspect of the superior vena cava. Lungs and pleura: No pleural effusions or pneumothorax. Lungs are clear. Mediastinum: The aorta is prominent and tortuous. The cardiac contours are within normal limits. Bones and chest wall: No suspicious bony lesions. Age-appropriate degenerative changes are seen. Overlying soft tissues appear unremarkable. IMPRESSION: No focal infiltrates are seen. Postoperative and degenerative changes are seen. Reviewed by: Krystian Cadena MD on 01/10/2020 3:06 PM AKYOLY Approved by: Krystian Cadena MD on 01/10/2020 3:06 PM AKYOLY Station ID: [id number]
[2020-01-10 16:10] LABS: PLT - PLATELET COUNT 5 10^3/uL (130-450); WHITE BLOOD COUNT 0.3 x10^3/uL (4.8-10.8)
[2020-01-10 16:12] LABS: PARTIAL THROMBOPLASTIN TIME 43.8 secs (24.9-33.3)
[2020-01-10 16:17] LABS: BILIRUBIN,URINE NEGATIVE (NEGATIVE); GLUCOSE, URINE (UA) NEGATIVE (NEGATIVE); KETONES,URINE (UA) TRACE mg/dL (NEGATIVE); LEUKOCYTE ESTERASE, URINE NEGATIVE (NEGATIVE); NITRITE,URINE NEGATIVE (NEGATIVE); OCCULT BLOOD,URINE MODERATE (NEGATIVE); PROTEIN,URINE 30 mg/dL (NEGATIVE); UROBILINOGEN,URINE 4 E.U./dL (NORMAL)
[2020-01-10 16:19] LABS: RAPID STREP SCREEN Negative (Negative)
[2020-01-10 16:25] LABS: CLARITY,URINE CLEAR (CLEAR)
[2020-01-10 16:32] LABS: DIFFERENTIAL COMMENT MANUAL=AUTO DIFF; PLATELET ESTIMATE, MANUAL DECREASED (<130,000) (NORMAL); PLATELET MORPHOLOGY NORMAL APPEARANCE (NORMAL)
[2020-01-10 16:37] LABS: BACTERIA,URINE Rare /HPF (None Seen); EPITHELIAL CELLS,UR RARE Transitional /HPF (<= Few); SQUAMOUS EPITHELIAL CELL,UR MANY Squamous (<= Few)
[2020-01-10] MEDS ORDERED: CEFEPIME 2 GM in SODIUM CHLORIDE 0.9% MINIBAG 100 ML IV STA (16:42)
[2020-01-10] MEDS ORDERED: ACETAMINOPHEN 325 MG TABLET PO STA ×2 (16:54→18:38)
--- NOTE | 2020-01-10 17:15 | Ultrasound Report ---
PROCEDURE: Abdomen Limited INDICATIONS: RUQ pain, elevated LFT, ovarian CA TECHNIQUE: Real-time focused scanning was performed of the abdomen, with image documentation. COMPARISON: CT and ultrasound 05/15/2019 FINDINGS: The liver demonstrates normal size and echogenicity. No liver lesions are detected. No gallstones or significant sludge can be seen. The gallbladder wall does not appear thickened. Ther e is no specific pericholecystic fluid. The sonographic Ward's sign is negative. No biliary ductal dilatation is seen. The common bile duct measures 3 mm. The visualized pancreas is within normal limits. The right kidney demonstrates normal length and cortical thickness. There is a 6 mm hyperechoic focus along the right mid kidney, which likely relates to a benign, fat-containing lesion. The IVC is patent. IMPRESSION: Normal-appearing liver by ultrasound. The gallbladder demonstrates a normal sonographic appearance. No biliary dilatation is seen. Note: Concordant preliminary findings given by the finishing machine operator upon the completion of the examination to Dr. Hale at 4:45 PM Reviewed by: Krystian Cadena MD on 01/10/2020 4:14 PM MARGARITA Approved by: Krystian Cadena MD on 01/10/2020 4:14 PM MARGARITA Station ID: [id number]
[2020-01-10 20:29] VITALS: BP 133/73
== END 2020-01-10 20:45 | disposition short-term general hospital (02) ==
LOC: ED 14:40
DX: D61.818 Other pancytopenia (principal); Z20.828 Contact with and (suspected) exposure to other viral communicable diseases; D69.6 Thrombocytopenia, unspecified; R50.81 Fever presenting with conditions classified elsewhere; K12.1 Other forms of stomatitis; R10.11 Right upper quadrant pain; C56.9 Malignant neoplasm of unspecified ovary; C78.7 Secondary malignant neoplasm of liver and intrahepatic bile duct; Z79.01 Long term (current) use of anticoagulants; Z87.891 Personal history of nicotine dependence
CPT/HCPCS: 36415; 71045; 76705; 80053; 81001; 83605; 83690; 85025; 85610; 85730; 87040; 87070; 87430; 96361; 96365; 99284; 99285; A9270; U0004; 81003; 87086

== ENCOUNTER 2020-03-18 13:03 | Outpatient (CLI) | payer MEDICARE ==
--- NOTE | 2020-03-18 13:46 | DEXA Report ---
PROCEDURE: Dexa Spine and/or Hip INDICATIONS: POSTMENOPAUSAL TECHNIQUE: Dual energy x-ray absorptiometry (DXA) was performed on a [employer] System. Regions measur ed are the AP Spine, femoral neck, and if needed forearm. COMPARISON: DXA, 03/26/2018. FINDINGS: Lumbar Spine: Bone Mineral Density 0.959 g/cm/cm,T score -1.8, Left Hip: Bone Mineral Density 0.632 g/cm/cm,T score -3.0, Left Femoral Neck: Bone Mineral Density 0.663 g/cm/cm, T score -2.7, (T score greater or equal to -1.0: NORMAL) (T score from -1.1 to -2.4: OSTEOPENIA) (T score less than or equal to -2.5 to: OSTEOPOROSIS) Impression: Based on WHO criteria, the patient is osteoporotic. Compared with the last exam dated 02/2018, the bone mineral density of the lumbar spine is slightly improved, and the bone mineral dens ity of the left hip is not significantly changed. Patients with diagnosis of osteoporosis or osteopenia should have regular bone mineral density assess ment. For those eligible for Medicare, routine testing is allowed once every 2 years. Testing frequ ency can be increased for patients who have rapidly progressing disease or for those who are receivin g medical therapy to restore bone mass. Reviewed by: Shamar Dasilva MD on 03/18/2020 1:44 PM PST Approved by: Shamar Dasilva MD on 03/18/2020 1:44 PM PST Station ID: [id number]
== END 2020-03-18 13:04 | disposition home or self-care (01) ==
LOC: DI 13:03
PROVIDERS: ATTEND Physician Assistant
DX: M81.0 Age-related osteoporosis without current pathological fracture (principal)

== ENCOUNTER 2020-10-24 16:11 | Outpatient (CLI) | payer MEDICARE | END 2020-10-24 16:12 | disposition critical access hospital (66) | LOC: EMS 16:11 | DX: R55 Syncope and collapse (principal); R11.10 Vomiting, unspecified | CPT/HCPCS: A0425; A0427 ==

== ENCOUNTER 2020-10-24 16:46 | Emergency (ER) | payer MEDICARE ==
[2020-10-24] MEDS ORDERED: DICYCLOMINE 10 MG CAPSULE PO STA (17:38)
[2020-10-24] MEDS ORDERED: SODIUM CHLORIDE 0.9% 1,000 ML IV STA (17:38)
[2020-10-24] MEDS ORDERED: LOPERAMIDE 2 MG CAPSULE PO STA ×2 (17:38→20:08)
--- NOTE | 2020-10-24 17:38 | ED Physician Documentation ---
History of Present Illness - Stated complaint Stated Complaint: NEAR SYNCOPE - Chief complaint Chief Complaint: General - History obtained from History obtained from: Patient (65-year-old woman undergoing treatments for ovarian cancer started to feel sweaty and nauseous around 2 PM and then had profuse diarrhea and vomiting with lightheadedness. Feeling better now. She took some Zofran. 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: Ovarian cancer, Other : Other HEENT: None Psych: Depression, Anxiety, ADD/ADHD Musculoskeletal: Osteoporosis Derm: None - Past Surgical History Past Surgical History: Yes General: Colonoscopy /NON DESTRUCTIVE TESTING ENGINEER: section, Dilation and currettage, Hysterectomy HEENT: Cataracts, Tonsil/Adenoidectomy - Present Medications Home Medications: Ambulatory Orders Medication Instructions Recorded Confirmed Citalopram Hydrobromide 20 mg PO DAILY 05/16/19 09/27/20 [Citalopram HBr] Methylphenidate HCl 20 mg PO BID 05/16/19 09/27/20 [Methylphenidate ER] cycloSPORINE [Restasis] 1 drops EACHEYE DAILY PRN 06/23/19 09/27/20 LORazepam [Ativan] 0.5 mg PO Q6H PRN 06/24/19 09/27/20 Lidocaine/Prilocain 2.5% Cream 30 gm TOP DAILY 06/24/19 09/27/20 [Emla 2.5% Cream] Prochlorperazine Maleate 10 mg PO DAILY PRN 06/24/19 09/27/20 [Compazine] Rivaroxaban [Xarelto] 10 mg PO DAILY 06/24/19 09/27/20 ondansetron HCL [Zofran] 8 mg PO BID PRN #30 tablet 01/07/20 09/27/20 oxyCODONE [Roxicodone] 5 mg PO UD PRN #45 tablet 01/07/20 09/27/20 Niraparib Tosylate [Zejula] 1 cap PO DAILY 07/05/20 09/27/20 lisinopriL [Prinivil] 10 mg PO DAILY #90 tablet 09/06/20 09/27/20 Zolpidem [Ambien] 5 mg PO HS PRN 09/28/20 09/28/20 Azithromycin [Zithromax] 2 tab PO DAILY #4 tab 10/24/20 Metoclopramide [Reglan] 10 mg PO Q6H PRN #20 tablet 10/24/20 - Allergies Allergies/Adverse Reactions: Allergies Allergy/AdvReac Type Severity Reaction Status Date / Time No Known Drug Allergies Allergy Verified 10/24/20 17:07 - Social History Does the pt smoke?: No Smoking Status: Never smoker Does the pt drink ETOH?: No Does the pt have substance abuse?: No - Immunizations Immunizations are current?: Yes - POLST Patient has POLST: No POLST Status: Full Code PD ED PE NORMAL - Vitals Vital signs reviewed: Yes - General General: Alert and oriented X 3, No acute distress - HEENT HEENT: PERRL, EOMI - Neck Neck: Supple, no meningeal sign, No bony TTP - Cardiac Cardiac: RRR, No murmur - Respiratory Respiratory: No respiratory distress, Clear bilaterally - Abdomen Abdomen: Other (Very hyperactive bowel tones, nondistended and nontender.) - Back Back: No CVA TTP, No spinal TTP - Derm Derm: Normal color, Warm and dry - Extremities Extremities: No edema, No calf tenderness / cord - Neuro Neuro: Alert and oriented X 3, Normal speech Results - Vitals Vitals: Vital Signs - 24 hr 10/24/20 10/24/20 10/24/20 17:01 18:00 19:20 Temperature 36.3 C L Heart Rate 63 67 Heart Rate [ 71 Sitting] Heart Rate [ 75 Standing] Heart Rate [ 65 Supine] Respiratory 16 14 Rate Blood Pressure 112/83 H 151/85 H Blood Pressure 111/89 H [Sitting] Blood Pressure 121/86 H [Standing] Blood Pressure 131/85 H [Supine] O2 Saturation 100 100 10/24/20 20:14 Temperature Heart Rate 75 Heart Rate [ Sitting] Heart Rate [ Standing] Heart Rate [ Supine] Respiratory 20 Rate Blood Pressure 147/94 H Blood Pressure [Sitting] Blood Pressure [Standing] Blood Pressure [Supine] O2 Saturation 100 Oxygen O2 Source Room air - EKG (time done) 9470 Rate: Rate (enter#) (56) Rhythm: NSR [place]: LAD Intervals: Normal SD QRS: Normal Ischemia: Normal ST segments - Labs Labs: Laboratory Tests 10/24/20 10/24/20 17:50 17:50 WBC 11.0 H RBC 3.54 L Hgb 13.8 Hct 40.0 MCV 113.0 H MCH 39.0 H MCHC 34.5 RDW 12.5 Plt Count 142 MPV 9.4 Neut # (Auto) 9.2 H Lymph # (Auto) 0.8 L [place] # (Auto) 0.7 Eos # (Auto) 0.2 Baso # (Auto) 0.0 Absolute Nucleated RBC 0.00 Nucleated RBC % 0.0 Manual Slide Review Indicated WBC Morphology NORMAL APPEARANCE Platelet Estimate NORMAL (130-450,000) Platelet Morphology NORMAL APPEARANCE RBC Morph Micro Appear 2+ MACROCYTOSIS Sodium 139 Potassium 4.1 Chloride 103 Carbon Dioxide 25 Anion Gap 11.0 BUN 36 H Creatinine 1.3 H Estimated GFR (MDRD) 41 L Glucose 111 H Calcium 9.6 Total Bilirubin 1.1 H AST 50 H ALT 50 Alkaline Phosphatase 75 Total Protein 7.6 Albumin 4.7 Globulin 2.9 Albumin/Globulin Ratio 1.6 Lipase 37 PD MEDICAL DECISION MAKING - ED course ED course: 65-year-old woman undergoing cancer treatment presents with acute onset diarrhea. She had several episodes here and we did send a culture and a C. difficile. Hyperactive bowel tones but very benign abdominal examination. Her usual white count on her chemotherapy has been in the 2-3 range and today it is 11 suggesting potentially a bacterial etiology as such we are treating with Zithromax pending stool culture. Departure - Departure Disposition: 01 Home, Self Care Clinical Impression: Diarrhea Qualifiers: Diarrhea type: presumed infectious Qualified Code(s): R19.7 - Diarrhea, unspecified Condition: Good Record reviewed to determine appropriate education?: Yes Instructions: ED Gastroenteritis Report Pend Prescriptions: Metoclopramide [Reglan] 10 mg PO Q6H PRN #20 tablet PRN Reason: nausea or headache Azithromycin [Zithromax] 2 tab PO DAILY #4 tab Comments: You were seen today for sudden onset and significant diarrhea associated with some abdominal cramps and nausea and sweats. Could be a viral illness, but your white blood cell count is elevated a bit over your baseline. You have also had varying renal function and this needs to be followed over time. You received some IV fluids, medication for the cramps, nausea, and diarrhea. This should all help. Given the elevated white blood cell count I do wonder if it could be a bacterial diarrhea such as Campylobacter or E. coli. We are checking for this but in the meantime I am starting you on Zithromax which is good treatment for most of those etiologies. Return if worsening or if not better in the next 18 to 24 hours. Anytime if worsening. Continue following up with your cancer doctor as usual. I am also prescribing Reglan which is a nausea agent, I do not want you to take your ondansetron until you the azithromycin has been stopped for probably at least 24 to 48 hours. We will call you with any positive stool culture results, you can also check your results on the patient portal. Discharge Date/Time: 10/24/20 20:23
[2020-10-24 18:00] LABS: BASOPHILS % (AUTO) 0.4 %; EOSINOPHILS # (AUTO) 0.2 10^3/uL (0.0-0.7); EOSINOPHILS % (AUTO) 1.6 %; HGB - HEMOGLOBIN 13.8 g/dL (12.0-16.0); LYMPHOCYTES # (AUTO) 0.8 10^3/uL (1.5-3.5); MEAN CORPUSCULAR HGB CONC 34.5 g/dL (32.0-36.0); MEAN PLATELET VOLUME 9.4 fL (7.9-10.8); MONOCYTES # (AUTO) 0.7 10^3/uL (0.0-1.0); MONOCYTES % (AUTO) 6.5 %; NEUTROPHILS # (AUTO) 9.2 10^3/uL (1.5-6.6); NEUTROPHILS % (AUTO) 84.2 %; PLT - PLATELET COUNT 142 10^3/uL (130-450); RED BLOOD COUNT 3.54 10^6/uL (4.20-5.40); RED CELL DISTRIBUTION WIDTH 12.5 % (12.0-15.0)
[2020-10-24 18:18] LABS: ALBUMIN 4.7 g/dL (3.2-5.5); ALBUMIN/GLOBULIN RATIO 1.6 (1.0-2.2); BILIRUBIN,TOTAL 1.1 mg/dL (0.2-1.0); CALCIUM 9.6 mg/dL (8.5-10.3); CREATININE 1.3 mg/dL (0.4-1.0); POTASSIUM 4.1 mmol/L (3.5-5.0); TOTAL PROTEIN 7.6 g/dL (6.7-8.2)
[2020-10-24 19:02] LABS: SLIDE REVIEW? Indicated
[2020-10-24 19:03] LABS: PLATELET ESTIMATE, MANUAL NORMAL (130-450,000) (NORMAL); PLATELET MORPHOLOGY NORMAL APPEARANCE (NORMAL); WBC MORPHOLOGY (MULTIPLE) NORMAL APPEARANCE (NORMAL)
[2020-10-24] MEDS ORDERED: AZITHROMYCIN 250 MG TABLET PO STA (19:40)
[2020-10-24 20:15] VITALS: BP 147/94
== END 2020-10-24 20:23 | disposition home or self-care (01) ==
LOC: EDUNIT# → ED 16:46 → SUPCPDRO 16:46 → ED 20:23
DX: R19.7 Diarrhea, unspecified (principal); R11.2 Nausea with vomiting, unspecified; R10.9 Unspecified abdominal pain; R42 Dizziness and giddiness; C56.9 Malignant neoplasm of unspecified ovary; Z79.01 Long term (current) use of anticoagulants
CPT/HCPCS: 36415; 80053; 81599; 83690; 85025; 87493; 93005; 96360; 96361; 99283; 99284; A9270; 87045; 87046

== ENCOUNTER 2021-02-09 11:29 | Outpatient (CLI) | payer MEDICARE ==
[2021-02-09] MEDS ORDERED: IOVERSOL 320 100 ML VIAL IVP ONE (11:45)
[2021-02-09] MEDS ORDERED: IOVERSOL 320 50 ML VIAL ONE (11:45)
--- NOTE | 2021-02-09 15:02 | CT Report ---
PROCEDURE: Abdomen/Pelvis W INDICATIONS: OVARIAN CA CONTRAST: IV CONTRAST: Optiray 320 ml: 100 PO CONTRAST: Optiray 320 ml50 TECHNIQUE: After the administration of IV and oral contrast, 5 mm thick sections acquired from the diaphragms to the symphysis. 5 mm thick coronal and sagittal reformats were acquired. For radiation dose reducti on, the following was used: automated exposure control, adjustment of mA and/or kV according to aguilar ent size. COMPARISON: Ultrasound of abdomen report dated 01/10/2020 CT angiogram of abdomen and pelvis report d ated 05/15/2019. FINDINGS: Image quality: Excellent. ABDOMEN: Lung bases: Mild bibasilar dependent atelectasis is seen posteriorly. Heart size is normal. Solid organs: Liver and spleen are normal in size and enhancement. Gallbladder is within normal solis its. Biliary system is non dilated. Pancreas enhances normally. No adrenal nodules. Kidneys demon strate normal size and enhancement, without hydronephrosis. Peritoneum and bowel: Bowel loops demonstrate normal wall thickness and caliber. No free fluid or a ir. Nodes and vessels: No retroperitoneal or mesenteric adenopathy by size criteria on the current study . Previously described 12 mm omental nodule in left upper quadrant between posterior spleen and left kidney is not seen on the current study. Aorta and inferior vena cava are normal in size. Miscellaneous: No ventral hernias. PELVIS: Genitourinary: Bladder wall thickness is normal. Miscellaneous: No inguinal hernias or adenopathy. Previously described bilateral adnexal masses are no longer seen, suggest clinical correlation for interval surgical resection. No pelvic mass is noted on the current study. Bones: No suspicious bony lesions. No vertebral body compression fractures. IMPRESSION: 1. Previously described bilateral adnexal/ovarian masses are no longer seen suggestive of interval meredith rgical resection, suggest clinical correlation. No pelvic mass is noted on the current study. 2. No peritoneal or retroperitoneal lymphadenopathy is seen on the current study. There is no free fl uid or free air. No omental thickening or nodules seen. Reviewed by: Marvin Toussaint MD on 02/09/2021 3:00 PM PDT Approved by: Marvin Toussaint MD on 02/09/2021 3:00 PM PDT Station ID: [id number]
== END 2021-02-09 11:30 | disposition home or self-care (01) ==
LOC: DI 11:29
PROVIDERS: ATTEND Obstetrics & Gynecology
DX: C56.3 Malignant neoplasm of bilateral ovaries (principal)
CPT/HCPCS: 74177; Q9967

== ENCOUNTER 2021-05-02 10:49 | Outpatient (CLI) | payer MEDICARE ==
--- NOTE | 2021-05-02 13:09 | XRAY Report ---
PROCEDURE: Knee 3 View RT INDICATIONS: PAIN IN RIGHT KNEE TECHNIQUE: 3 views of the right knee(s) were acquired. COMPARISON: None. FINDINGS: Bones: No fractures or dislocations. Mild joint space narrowing at the medial compartment. Probable tiny osteophytes at the lateral tibial plateau. No suspicious bony lesions. Soft tissues: No joint effusion. No suspicious soft tissue calcifications. IMPRESSION: Mild right knee DJD. Reviewed by: Carroll Hull MD on 05/02/2021 1:08 PM RUST Approved by: Carroll Hull MD on 05/02/2021 1:08 PM RUST Station ID: [id number]
--- NOTE | 2021-05-02 16:35 | XRAY Report ---
PROCEDURE: Shoulder 3 View RT INDICATIONS: RIGHT SHOULDER PAIN TECHNIQUE: Views of the location were acquired. COMPARISON: None. FINDINGS: Bones: No fractures or dislocations. No suspicious bony lesions. There are degenerative changes o f the right acromioclavicular joint and right glenohumeral joint. Soft tissues: No suspicious soft tissue calcifications. IMPRESSION: 1. No acute abnormality. 2. Degenerative changes of the right acromioclavicular joint and right glenohumeral joint Reviewed by: Awais Hoffman on 05/02/2021 4:34 PM PST Approved by: Awais Hoffman on 05/02/2021 4:34 PM PST Station ID: [id number]
--- NOTE | 2021-05-03 08:18 | Mammography Report ---
BILATERAL DIGITAL SCREENING MAMMOGRAM 3D/2D WITH EXAGGERATED CC: 05/02/2021 CLINICAL: Routine screening. Comparison is made to exams dated: 05/09/2018 mammogram, 01/24/2016 mammogram, 10/27/2014 mammogram, a nd 10/03/2013 mammogram - [facility]. The tissue of both breasts is predominantly f atty. No significant masses, calcifications, or other findings are seen in either breast. There has been no significant interval change. IMPRESSION: NEGATIVE There is no mammographic evidence of malignancy. A 1 year screening mammogram is recommended. This exam was interpreted at Station ID: [id number]. NOTE: For mammograms, a report in lay terms will be sent to the patient. Approximately 15% of breast malignancies will not be visualized mammographically. In the management of a palpable breast mass, a negative mammogram must not discourage biopsy of a clinically suspicious lesion. Electronically Signed By: Milton Lara M.D., jr/chace:05/02/2021 12:04:28 ACR BI-RADS Category 1: Negative 3341F PARENCHYMAL PATTERN: (F) - The breast(s) demonstrate(s) diffuse fatty replacement. BI-RADS CATEGORY: (1) - 1 RECOMMENDATION: (ANNUAL) - Recommend routine annual screening mammography. [id number] 1 year screening LATERALITY: (B)
== END 2021-05-02 10:50 | disposition home or self-care (01) ==
LOC: DI.S 10:49
PROVIDERS: ATTEND Nurse Practitioner Family
DX: Z12.31 Encounter for screening mammogram for malignant neoplasm of breast (principal); M19.011 Primary osteoarthritis, right shoulder; M17.11 Unilateral primary osteoarthritis, right knee

== ENCOUNTER 2021-05-02 11:30 | Outpatient (CLI) | payer MEDICARE | END 2021-05-02 11:31 | disposition home or self-care (01) | LOC: DI 11:30 | PROVIDERS: ATTEND Nurse Practitioner Family | DX: M19.011 Primary osteoarthritis, right shoulder (principal); M17.11 Unilateral primary osteoarthritis, right knee ==

== ENCOUNTER 2021-05-06 14:12 | Outpatient (CLI) | payer MEDICARE ==
--- NOTE | 2021-05-06 16:54 | DEXA Report ---
PROCEDURE: Dexa Spine and/or Hip INDICATIONS: OSTEOPOROSIS TECHNIQUE: Dual energy x-ray absorptiometry (DXA) was performed on a [employer] System. Regions measur ed are the AP Spine, femoral neck, and if needed forearm. COMPARISON: None. FINDINGS: Lumbar Spine: Bone Mineral Density 0.97 g/cm/cm,T score -1.8. Osteopenia Left Hip: Bone Mineral Density 0.66 g/cm/cm,T score -2.8, osteoporosis Impression: 1. Lumbar spine osteopenia. 2. Left hip osteoporosis. Patients with diagnosis of osteoporosis or osteopenia should have regular bone mineral density assess ment. For those eligible for Medicare, routine testing is allowed once every 2 years. Testing frequ ency can be increased for patients who have rapidly progressing disease or for those who are receivin g medical therapy to restore bone mass. Reviewed by: Riley Azul MD on 05/06/2021 4:53 PM PST Approved by: Riley Azul MD on 05/06/2021 4:53 PM PST Station ID: [id number]
== END 2021-05-06 14:13 | disposition home or self-care (01) ==
LOC: DI 14:12
PROVIDERS: ATTEND Nurse Practitioner Family
DX: M81.0 Age-related osteoporosis without current pathological fracture (principal)

== ENCOUNTER 2022-02-25 11:50 | Outpatient (CLI) | payer MEDICARE ==
[2022-02-25] MEDS ORDERED: iohexoL-300 100 ML VIAL ONE (12:23)
[2022-02-25] MEDS ORDERED: DIATRIZOATE MEGLU/DIATRIZO SOD 30 ML BOTTLE PO ONE ×2 (12:23→13:42)
[2022-02-25] MEDS ORDERED: iohexoL-300 100 ML VIAL IVP ONE (13:42)
--- NOTE | 2022-02-25 18:32 | CT Report ---
PROCEDURE: ABDOMEN/PELVIS W INDICATIONS: UNINTENDED WEIGHT LOSS, OVARIAN CA CONTRAST: 100 cc Omni 300 TECHNIQUE: After the administration of IV and oral contrast, 5 mm thick sections acquired from the diaphragms to the symphysis. 5 mm thick coronal and sagittal reformats were acquired. For radiation dose reducti on, the following was used: automated exposure control, adjustment of mA and/or kV according to aguilar ent size. COMPARISON: 02/09/2021, 05/15/2019. Correlation is made with the accompanying chest CT, 03/05/2022. FINDINGS: Image quality: Excellent. ABDOMEN: Lung bases: Lung bases are clear. Heart size is normal. Solid organs: Liver and spleen are normal in size and enhancement. Gallbladder wall does not appear thickened. Biliary system is non dilated. Pancreas enhances normally. No adrenal nodules. Kidn eys demonstrate normal size and enhancement, without hydronephrosis. Peritoneum and bowel: Bowel loops demonstrate normal wall thickness and caliber. No free fluid or a ir. Nodes and vessels: No retroperitoneal or mesenteric adenopathy by size criteria. Aorta and inferior vena cava are normal in size. Miscellaneous: No ventral hernias. PELVIS: Genitourinary: Bladder wall thickness is normal. This patient is status post hysterectomy. No adnex al masses can be seen. Miscellaneous: No inguinal hernias or adenopathy. Bones: No suspicious bony lesions. No vertebral body compression fractures. IMPRESSION: Prior hysterectomy and oophorectomy, without adnexal masses seen. No findings of metastatic disease are detected. - No peritoneal masses or ascites can be seen. - No liver lesions are seen. - No enlarged retroperitoneal, mesenteric, pelvic or inguinal lymph nodes are seen. Reviewed by: Krystian Cadena MD on 02/25/2022 5:31 PM [place] Approved by: Krystian Cadena MD on 02/25/2022 5:31 PM [facility] Station ID: [id number]
--- NOTE | 2022-02-25 18:36 | CT Report ---
PROCEDURE: CHEST W INDICATIONS: UNINTENDED WEIGHT LOSS, OVARIAN CA CONTRAST:1 TECHNIQUE: After the administration of intravenous contrast, 1 mm axial images were acquired from the pulmonary apices through the posterior costophrenic angles. Axial 5 mm soft tissue kernel reconstructions were performed as well as 8 mm axial MIP and coronal and sagittal 5 mm reformations. For radiation dose reduction, the following was used: automated exposure control, adjustment of mA and/or kV according to patient size. COMPARISON: 05/15/2019, correlation is also made with the accompanying abdomen pelvis CT, 02/26/2012 FINDINGS: Image quality: Excellent. Lungs and pleura: No acute air space opacities. Within the left upper lobe, there is a 2 to 3 mm pul monary nodule seen posteriorly, as on series 3 image 95. This measures smaller on the current study t lowe on the prior CT, it measured 4 mm. No additional pulmonary nodules are seen. No pleural effusions or pneumothorax. Central and peripheral airways are patent and normal in caliber. Mediastinum: Heart size is normal. No pericardial effusion. No mediastinal or hilar adenopathy by size criteria. Thoracic aorta and central pulmonary arteries are normal in size. Esophagus is leah l in caliber. No hiatal hernia. Bones and chest wall: No suspicious bony lesions. No vertebral body compression fractures. Age-appr opriate degenerative changes are seen. There is accentuated thoracic kyphosis. No axillary or sup raclavicular adenopathy by size criteria. The thyroid is normal in size and there are no incidental findings. There is a left-sided chest port, with the tip within the inferior aspect of the superior v charu cava. Abdomen: Visualized upper abdominal solid organs appear normal. Upper abdominal bowel loops are nor mal in caliber. IMPRESSION: No findings of active metastatic disease are seen. There is a 2 to 3 mm left upper lobe nodule seen, which measures decreased in size compared to the examination. Incidental note is made of: Left-sided chest port Reviewed by: Krystian Cadena MD on 02/25/2022 5:35 PM AKST Approved by: Krystian Cadena MD on 02/25/2022 5:35 PM AKST Station ID: [id number]
== END 2022-02-25 11:51 | disposition home or self-care (01) ==
LOC: DI 11:50
PROVIDERS: ATTEND Obstetrics & Gynecology
DX: R63.4 Abnormal weight loss (principal); C56.9 Malignant neoplasm of unspecified ovary; R91.1 Solitary pulmonary nodule; Z90.710 Acquired absence of both cervix and uterus; Z90.722 Acquired absence of ovaries, bilateral
CPT/HCPCS: 71260; 74177; Q9963; Q9967

== ENCOUNTER 2023-04-24 14:12 | Emergency (ER) | payer MEDICARE, OTHER ==
--- NOTE | 2023-04-24 14:39 | XRAY Report ---
PROCEDURE: Chest 1V INDICATIONS: cough TECHNIQUE: One view of the chest was acquired. COMPARISON: Chest CT 07/04/2022 FINDINGS: Surgical changes and devices: Right Port-A-Cath is present distal tip projecting over the mid SVC. Lungs and pleura: No pleural effusions or pneumothorax. Lungs are clear. Mediastinum: Mediastinal contours appear normal. Heart size is normal. Bones and chest wall: No suspicious bony lesions. Overlying soft tissues appear unremarkable. IMPRESSION: No acute cardiopulmonary process. Reviewed by: Negra Fontenot MD on 04/24/2023 2:38 PM PST Approved by: Negra Fontenot MD on 04/24/2023 2:38 PM PST Station ID: [id number]
--- NOTE | 2023-04-24 16:17 | ED Physician Documentation ---
PD HPI HEENT - Stated complaint Stated Complaint: C+,SORE THROAT,CONGESTION,BODY ACHES - Chief complaint Chief Complaint: Fever - History obtained from History obtained from: Patient, Family - Additional information Additional information: The patient comes to the emergency department chief complaint of sore throat, body aches, and nasal congestion for the last couple of days. She tested positive for COVID and was told by the [facility] clinic nurse to come in here, she is on chemotherapy. The patient states overall, she feels mildly ill but otherwise fairly well. Her sore throat is better than it was. She does not have much of a cough. She is currently on Keytruda as well as traditional chemotherapy for ovarian cancer, which has recurred for the second time. She states that she does have frequent UTIs but does not at all feel like she has one now. She denies any dysuria, frequency, urgency, or lower abdominal pain. No nausea or vomiting. No diarrhea. No other complaints at this time. 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, Other : Other HEENT: None Psych: Depression, Anxiety, ADD/ADHD Musculoskeletal: Osteoporosis Derm: None - Past Surgical History Past Surgical History: Yes General: Colonoscopy /[employer]STUME DES[employer]ER: section, Dilation and currettage, Hysterectomy HEENT: Cataracts, Tonsil/Adenoidectomy - Present Medications Home Medications: Ambulatory Orders Medication Instructions Recorded Confirmed Citalopram Hydrobromide 20 mg PO DAILY 05/16/19 04/02/23 [Citalopram HBr] Methylphenidate HCl 20 mg PO BID 05/16/19 04/02/23 [Methylphenidate ER] LORazepam [Ativan] 0.5 mg PO Q8HR PRN 06/24/19 04/02/23 Lidocaine/Prilocain 2.5% Cream 30 gm TOP DAILY 06/24/19 04/02/23 [Emla 2.5% Cream] ondansetron HCL [Zofran] 8 mg PO BID PRN #30 tablet 01/07/20 04/02/23 Lisinopril [Zestril] 20 mg PO DAILY #90 tablet 05/16/21 04/02/23 Rivaroxaban [Xarelto] 10 mg PO DAILY #90 tablet 06/06/21 04/02/23 Citalopram Hydrobromide [Celexa] 20 mg PO DAILY #90 tablet 11/21/21 04/02/23 cycloPHOSphamide [Cytoxan] 50 mg PO DAILY 04/02/23 04/02/23 - Allergies Allergies/Adverse Reactions: Allergies Allergy/AdvReac Type Severity Reaction Status Date / Time No Known Drug Allergies Allergy Verified 04/24/23 14:23 - Social History Does the pt smoke?: No Smoking Status: Never smoker Does the pt drink ETOH?: No Does the pt have substance abuse?: No - Immunizations Immunizations are current?: Yes - POLST Patient has POLST: No POLST Status: Full Code PD ED PE NORMAL - Vitals Vital signs reviewed: Yes - General General: Alert and oriented X 3, No acute distress, Well developed/nourished - HEENT HEENT: Atraumatic, PERRL, EOMI, Moist mucous membranes, Pharynx benign - Neck Neck: Supple, no meningeal sign - Cardiac Cardiac: RRR, No murmur - Respiratory Respiratory: No respiratory distress, Clear bilaterally - Abdomen Abdomen: Soft, Non tender, Non distended - Derm Derm: Normal color, Warm and dry, No rash - Extremities Extremities: No deformity, No edema - Neuro Neuro: Alert and oriented X 3 - Psych Psych: Normal mood, Normal affect Results - Vitals Vitals: Oxygen O2 Source Room air - Labs Labs: Microbiology 04/24/23 16:41 Blood Culture - Preliminary Blood NO GROWTH AFTER 2 DAYS 04/24/23 16:25 Blood Culture - Preliminary Blood - Left Arm NO GROWTH AFTER 2 DAYS Laboratory Tests 04/24/23 04/24/23 16:18 16:25 WBC 3.3 L RBC 2.70 L Hgb 9.3 L Hct 28.6 L MCV 105.9 H MCH 34.4 H MCHC 32.5 RDW 12.9 Plt Count 145 MPV 8.7 Neut # (Auto) 2.6 Lymph # (Auto) 0.4 L Cavalier # (Auto) 0.4 Eos # (Auto) 0.0 Baso # (Auto) 0.0 Absolute Nucleated RBC 0.00 Nucleated RBC % 0.0 Nasal Adenovirus (PCR) NOT DETECTED Nasal B. parapertussis DNA (PCR) NOT DETECTED Nasal Coronavir 229E PCR NOT DETECTED Nasal Coronavir HKU1 PCR NOT DETECTED Nasal Coronavir NL63 PCR NOT DETECTED Nasal Coronavir OC43 PCR NOT DETECTED Nasal Enterovir/Rhinovir PCR NOT DETECTED Nasal Influenza B PCR NOT DETECTED Nasal Influenza A PCR NOT DETECTED Nasal Parainfluen 1 PCR NOT DETECTED Nasal Parainfluen 2 PCR NOT DETECTED Nasal Parainfluen 3 PCR NOT DETECTED Nasal Parainfluen 4 PCR NOT DETECTED Nasal RSV (PCR) NOT DETECTED Nasal B.pertussis DNA PCR NOT DETECTED Nasal C.pneumoniae (PCR) NOT DETECTED Prasanna Human Metapneumo PCR NOT DETECTED Nasal M.pneumoniae (PCR) NOT DETECTED Nasal SARS-CoV-2 (PCR) DETECTED A PD Medical Decision Making - ED course Complexity details: reviewed old records, reviewed results, re-evaluated patient, considered differential, d/w patient, d/w family ED course: The patient was actually extremely well-appearing in the emergency department and I suspected that indeed, her symptoms were due to to a mild case of COVID. Because she is on chemotherapy, I have also ordered a chest x-ray, CBC, and blood cultures. Chest x-ray is negative. I discussed with the patient the possibility of doing Paxlovid and she would like to go ahead with this, but pharmacy stated that there were too many critical interactions with her chemo agents, and refused to release the medication. I have discussed with the pt that she should discuss this with her oncologist to verify. At this time, the pt is stable and her WBC count is 3.3. She is stable for d/c home. We have discussed home management of the sx as well as the usual indications for return. Departure - Departure Disposition: 01 Home, Self Care Clinical Impression: COVID-19 Condition: Stable Instructions: ED Viral Syndrome Comments: Your chest x-ray looks good and your complete blood counts shows a white blood cell count of 3.3 which is not too bad for somebody on chemotherapy. You are moderately anemic, but not in the range of blood transfusion, and your platelet count is normal. Blood cultures are pending, as is your viral panel. We will notify you at home if her blood cultures come back positive. Your symptoms are most likely due to COVID since you have already tested positive for this, but if you begin to notice that your illness seems to be worsening or if you are developing other concerning symptoms, please return for reevaluation. You have been given a prepack of Paxlovid, the antiviral that we are currently using for COVID. Please take the medication according to the instructions on the box. Ultimately, COVID is a virus and has to be fight off by your body's immune system, but some research has found Paxlovid to potentially be helpful in this process. If you find you are having side effects that are unpleasant with the Paxlovid, then you may go ahead and just stop it but for now, please take it. Forms: PCP List Discharge Date/Time: 04/24/23 17:56
[2023-04-24 16:34] LABS: BASOPHILS % (AUTO) 0.3 %; EOSINOPHILS % (AUTO) 0.3 %; HCT - HEMATOCRIT 28.6 % (37.0-47.0); HGB - HEMOGLOBIN 9.3 g/dL (12.0-16.0); LYMPHOCYTES # (AUTO) 0.4 10^3/uL (1.5-3.5); LYMPHOCYTES % (AUTO) 10.5 %; MEAN CORPUSCULAR HEMOGLOBIN 34.4 pg (27.0-31.0); MEAN CORPUSCULAR HGB CONC 32.5 g/dL (32.0-36.0); MEAN CORPUSCULAR VOLUME 105.9 fL (81.0-99.0); MEAN PLATELET VOLUME 8.7 fL (7.9-10.8); MONOCYTES # (AUTO) 0.4 10^3/uL (0.0-1.0); MONOCYTES % (AUTO) 11.7 %; NEUTROPHILS # (AUTO) 2.6 10^3/uL (1.5-6.6); NEUTROPHILS % (AUTO) 76.9 %; PLT - PLATELET COUNT 145 10^3/uL (130-450); RED CELL DISTRIBUTION WIDTH 12.9 % (12.0-15.0); WHITE BLOOD COUNT 3.3 x10^3/uL (4.8-10.8)
[2023-04-24] MEDS ORDERED: NIRMATRELVIR/RITONAVIR PREPACK PO STA (16:40)
[2023-04-24] MEDS ORDERED: SODIUM CHLORIDE 0.9% 500 ML IV ONE (17:03)
[2023-04-24 17:29] LABS: CORONAVIRUS 229E-RESP PCR NOT DETECTED; CORONAVIRUS HKU1-RESP PCR NOT DETECTED; CORONAVIRUS NL63-RESP PCR NOT DETECTED; CORONAVIRUS OC43-RESP PCR NOT DETECTED
[2023-04-24 17:34] LABS: SARS-CoV-2 -RESP PCR PANEL DETECTED
[2023-04-24 17:35] LABS: B. PARAPERTUSSIS- RESP PCR PAN NOT DETECTED; B. PERTUSSIS- RESP PCR PANEL NOT DETECTED; C. PNEUMONIAE- RESP PCR PANEL NOT DETECTED; HUMAN METAPNEUMOVIRUS NOT DETECTED; INFLUENZA A- RESP PCR PANEL NOT DETECTED; INFLUENZA B - RESP PCR PANEL NOT DETECTED; M. PNEUMONIAE- RESP PCR PANEL NOT DETECTED; PARAINFLUENZA VIRUS 1 NOT DETECTED; PARAINFLUENZA VIRUS 2 NOT DETECTED; PARAINFLUENZA VIRUS 3 NOT DETECTED; PARAINFLUENZA VIRUS 4 NOT DETECTED; RHINOVIRUS/ENTEROVIRUS NOT DETECTED; RSV- RESP PCR PANEL NOT DETECTED
[2023-04-24 17:55] VITALS: BP 123/81; O2SAT 99
== END 2023-04-24 17:56 | disposition home or self-care (01) ==
LOC: ED 14:12
DX: U07.1 COVID-19 (principal)
CPT/HCPCS: 36415; 85025; 87040; 87633; 96374; 99283

== ENCOUNTER → 2023-06-18 | Outpatient (CLI) | payer MEDICARE, OTHER | LOC: PC 08:00 | PROVIDERS: ATTEND Nurse Practitioner Adult Health | DX: Z51.5 Encounter for palliative care (principal); C56.3 Malignant neoplasm of bilateral ovaries; C79.51 Secondary malignant neoplasm of bone; C78.7 Secondary malignant neoplasm of liver and intrahepatic bile duct; F41.9 Anxiety disorder, unspecified; R41.89 Other symptoms and signs involving cognitive functions and awareness; R63.0 Anorexia; R63.4 Abnormal weight loss; R53.83 Other fatigue; I15.8 Other secondary hypertension; T45.1X5A Adverse effect of antineoplastic and immunosuppressive drugs, initial encounter; Z79.899 Other long term (current) drug therapy; Z86.16 Personal history of COVID-19; Z71.89 Other specified counseling | CPT/HCPCS: 99215 ==

== ENCOUNTER 2023-07-09 08:00 | Outpatient (CLI) | payer MEDICARE, OTHER | END 2023-07-09 23:59 | disposition home or self-care (01) | LOC: PC 08:00 | PROVIDERS: ATTEND Nurse Practitioner Adult Health | DX: Z51.5 Encounter for palliative care (principal); C56.3 Malignant neoplasm of bilateral ovaries; R53.83 Other fatigue; Z66 Do not resuscitate; F41.9 Anxiety disorder, unspecified; R18.0 Malignant ascites | CPT/HCPCS: 99215 ==

== ENCOUNTER 2023-08-20 08:00 | Outpatient (CLI) | payer MEDICARE, OTHER | END 2023-08-20 23:59 | disposition home or self-care (01) | LOC: PC 08:00 | PROVIDERS: ATTEND Nurse Practitioner Adult Health | DX: Z51.5 Encounter for palliative care (principal); C56.3 Malignant neoplasm of bilateral ovaries; R42 Dizziness and giddiness; F41.9 Anxiety disorder, unspecified; R53.83 Other fatigue; R63.4 Abnormal weight loss | CPT/HCPCS: 99215 ==

== ENCOUNTER 2023-09-11 08:00 | Outpatient (CLI) | payer MEDICARE, OTHER | END 2023-09-11 23:59 | disposition home or self-care (01) | LOC: PC 08:00 | PROVIDERS: ATTEND Nurse Practitioner Adult Health | DX: Z51.5 Encounter for palliative care (principal); R42 Dizziness and giddiness; R63.4 Abnormal weight loss; F41.9 Anxiety disorder, unspecified; C56.9 Malignant neoplasm of unspecified ovary; M70.52 Other bursitis of knee, left knee | CPT/HCPCS: 99214 ==

== ENCOUNTER 2023-10-22 10:30 | Outpatient (CLI) | payer MEDICARE, OTHER | END 2023-10-22 23:59 | disposition home or self-care (01) | LOC: PC 10:30 | PROVIDERS: ATTEND Nurse Practitioner Adult Health | DX: Z51.5 Encounter for palliative care (principal); M70.52 Other bursitis of knee, left knee; R42 Dizziness and giddiness; C56.9 Malignant neoplasm of unspecified ovary; R53.81 Other malaise; F43.20 Adjustment disorder, unspecified; F41.9 Anxiety disorder, unspecified; Z71.89 Other specified counseling | CPT/HCPCS: 99214 ==